=== PATIENT | female | born 1975 | race Caucasian/White ===

== ENCOUNTER 2016-11-04 09:00 | Outpatient (RCR) | payer BC ==
--- NOTE | 2016-10-24 13:00 | PT/OT/ST INITIAL EVALUATION ---
Department of Health and Human Services Form Approved Health Care Financing Administration OMB No. [id number] PLAN OF CARE/ASSESSMENT FOR OUTPATIENT REHABILITATION (Complete for Initial Claims Only) 1. PATIENT'S NAME Gela De La Fuente 2. ACC # [id number] 3. HICN NA 4. PROVIDER NO. NA 5. TYPE: OT 6. PRIOR HOSPITALIZATION NA 7. PRIMARY DX Right wrist tendonitis 8. Treatment DX Pain in right wrist, stiffness of right wrist, weakness. 9. ONSET DATE Approximately 3 months ago 10. REFERRAL DATE 10/18/2016 11. SOC. DATE 10/19/2016 12. TIME OF EVAL 10:01 a.m. to 11:06 a.m. 12. REFERRING PHYSICIAN Kaushik Nayak MD 13. CHARGES/UNITS 65 total time/units 30 [id number] low complexity ultrasound 06/26 iontophoresis 06/29 therapeutic exercise 14. G CODES NA 15. PRIOR LEVEL OF FUNCTION; PERTINENT HISTORY (Prior therapy results, reason for referral.) S: Reason for referral: The patient is a 41-year-old female referred by Dr. Kaushik Nayak to address occupational concerns secondary to right wrist tendonitis. Description/mechanism of injury: The patient reports having issues with tendonitis on and off over the years in the shoulders and wrists. The patient reports symptoms and pain typically going away with rest, bracing and ice, but symptoms have continued for the past 3 months with no consistent relief in pain levels. The patient reports she has been painting a whole house the past couple of months and the repetitive movements and grasping the paint brushes have caused increased pain. Home set up/Prior level of function: The patient lives with her and 2 children. Prior to onset, the patient was independent with all ADL and IADL tasks with no difficulty. Current functional performance and deficits: The patient is right handed. The patient reports difficulty with handling, manipulating and carrying everyday items with right hand. States it is difficult to complete laundry and any activities involving picking up and twisting the right wrist. Pt is unable to open items with right hand or participate in recreational activities at this time. Additionally, the patient reports difficulty when putting pressure on the right wrist. Pain level and location: The patient reports 1 to 2/10 pain at rest and increased pain up to 5-6/10 along the ulnar side of the elbow and along flexor carpi ulnaris tendon during active wrist movements. Aggravating factors: Picking up items and twisting with the right wrist. Relieving factors: Brace, rest and ice have helped to some extent. Diagnostic testing: No diagnostic tests completed at this time. Personal health rating: Good. Past medical history: No significant past medical history noted. Therapy History: The patient has completed previous physical therapy for shoulder and elbow concerns. Current medications: Ibuprofen. The patient has recently started a new antiinflammatory medication. No medication to complicate therapy. Patient's Goal: The patient's goals are to get better and reduce pain to return to all activities. 16. INITIAL ASSESSMENT/SAFETY PRECAUTIONS/MEDICAL COMPLICATIONS (Level of function at start of care. Be specific, use objective measures, list problems.) O: APPEARANCE AND OBSERVATION: The patient appeared to her initial occupational therapy evaluation this date. The patient was observed to be wearing a Neoprene wrist brace. Upon doffing, the patient demonstrated within functional limits of all elbow, shoulder and wrist planes. Noted at end ranges, the patient reported some noted pain during movements. The patient reports tightness with wrist flexion. With supination, the therapist observed a popping sound along flexor carpi ulnaris during movement. The patient reports 3 to 4/10 pain with active ulnar deviation and circumduction. The patient reports 2/10 in pain and popping along first dorsal compartment with radial deviation. The patient reports 5-6/10 pain with resistive pronation and 5-6/10 pain with resistive wrist extension along dorsal side of hand. ASSESSMENTS: Certified Physician'S Assistant strength: right 47 pounds with 4/10 pain, left 62 pounds. QUICKDASH: The QuickDASH was completed this date with a score of 38.64. A score of 0 indicates no difficulties or limitations with daily activities or leisure tasks. The patient reports her maximal pain in the past 24 hours as 6/10. SPECIAL TESTS: The Shazia test completed this date, with pt reporting increase in pain symptoms during testing, indicating positive results. PALPATION: The patient reports moderate to severe tenderness to palpation over flexor carpi ulnaris and along pisiform and triquetrum. Additionally the patient reports mild tenderness distal to right lateral epicondyle. SENSATION: Pt reports no tingling/numbness. COMPLEXITY LEVEL: The patient presents with decreased strength, increased pain with active movements and difficulty carrying, handling and manipulating everyday items with right hand. Pt presents with no co-morbidities affecting occupational performance. Required no modification of tasks or assistance during evaluation, placing pt at a low complexity level. CONTRAINDICATIONS, PRECAUTIONS AND OBSTACLES TO DELIVERY OF CARE: None INFORMED CONSENT: The occupational therapist discussed the OT diagnosis, prognosis, treatment plan, risks and expected outcome with the patient. The patient and family agreed to the OT plan of care this date. TODAY'S TREATMENT: Today's treatment included education about the occupational therapy and the occupational therapy process. The therapist completed ultrasound at 3.0 MHz, 1.5 Wcm2 continuous for 8 minutes each along volar side of hand and first dorsal compartment to reduce pain and promote healing. Instructed the patient in a home exercise program of short arc AROM movements to prevent stiffness and improve movement. Additionally provided the patient on education of brace wear schedule and completion of contrast baths, superficial cold and exercises throughout the day. The therapist applied iontophoresis dexamethasone 2.0 mL along flexor carpi ulnaris tendon to decrease pain and promote healing. 17. INITIAL POC: (Specify procedures, modalities, short and retirement goals) A: The patient presents to occupational therapy with decreased strength, increased pain with active movements and difficulty carrying and manipulating everyday items with right hand secondary to wrist tendonitis. The patient would benefit from skilled occupational therapy services for design and administration of therapeutic activities and exercises for return of prior level of function with no difficulty. Additionally to provide education on activity modification techniques to reduce onset of future injuries. PROBLEMS/IMPAIRMENTS/FUNCTIONAL LOSS: Includes decreased ability to handle, manipulate and carry everyday item with right hand during daily activities, resulting in patient relying on left hand for almost all daily tasks. INTENDED OUTCOMES: Includes reduce pain, improve strength and performance of right hand for return to prior level of function. REHAB POTENTIAL/PROGNOSIS: The patient is expected to have a good prognosis in therapy based on consistent therapy attendance and completion of home exercise program and following the therapist's recommendations. SHORT TERM GOALS X3 WEEKS: 1. The patient will verbalize and demonstrate compliance with home exercise program. 2. The patient will demonstrate ability to manipulate 8 out of 10 everyday items/containers using right with report of 2/10 pain or less to increase independence with manipulation tasks. AUDIO VISUAL PRODUCTION SPECIALIST GOALS X 5 WEEKS: 1. The patient to report a QuickDASH score of 10% or less to allow for return to all daily activities with no difficulty. 2. The patient will verbalize and demonstrate carryover of activity modification techniques and report a decrease in symptoms and pain during daily tasks and work tasks. 3. The patient will demonstrate an increase in right sign artist strength by 10 pounds or more to increase independence with carrying and handling everyday items. P: Plan to treat the patient 2 times a week for 5 weeks in order to address occupational concerns secondary to wrist tendonitis. Treatment is to include modalities, ultrasound, iontophoresis, combo, manual therapy, therapeutic exercise, active range of motion, passive range of motion, therapeutic activities, ADL/self-care, patient education/home exercise program, and other treatments as indicated. 18. FREQUENCY 2 times per week 19. DURATION 5 weeks 20. FUNCTIONAL LEVEL (End of claim period) 21. PHYSICIAN SIGNATURE ? ON FILE OR ENTER HERE: 22. DATE: I certify the need for these services furnished under this plan of care and if for partial hospitalization. 23. CERTIFICATION FROM THROUGH FORM [id number]
== END 2016-11-14 09:57 | disposition home or self-care (01) ==
LOC: OT 09:00
PROVIDERS: ATTEND Family Medicine
DX: M77.8 Other enthesopathies, not elsewhere classified (principal); M25.531 Pain in right wrist; M25.631 Stiffness of right wrist, not elsewhere classified